=== PATIENT | female | born 1945 | race Caucasian/White ===

== ENCOUNTER → 2018-03-04 | Outpatient (CLI) | payer OTHER ==
[~2018-03-04] MED LIST: ABDOMINAL BINDE1 MI1; ALLO100 PO; ALLO100T PO; CIPR500T4 PO; CLIN1CAP6 PO; COMMODE 3-IN-11 MIS; FLUT50SP EACH NARE; HYDR-3516 PO; HYDR-3580 PO; MACR100C PO; NABU1TAB33 PO; NABU500T PO; OMEP20TA PO; OMEP40CA2 PO; PROBCAP4 PO; SERT-132 PO; SERT25TA83 PO; TYLE500T PO; WALKER WHEELS/F1 MIS; ZOLO25TA PO
--- NOTE | 2018-03-04 11:06 | RADRPT ---
EXAM DATE/TIME: 03/04/2018 10:53 [facility] COMPARISON: No previous studies available for comparison. INDICATIONS : Evaluate for pneumonia,pneumothorax,or communicable disease. MEDICAL HISTORY : None. SURGICAL HISTORY : None. ENCOUNTER: Initial ACUITY: 1 day PAIN SCORE: 0/10 LOCATION: Bilateral upper chest FINDINGS: PA and lateral views of the chest demonstrate the lungs to be symmetrically aerated without evidence of mass, infiltrate or effusion. The cardiomediastinal contours are unremarkable. Osseous structure s are intact. CONCLUSION: No acute disease. Emanuel Wayne MD FACR on March 04, 2018 at 11:03 Board Certified Radiologist. This report was verified electronically.
--- NOTE | 2018-03-05 12:55 | EKG ---
Date Performed: 03/04/2018 Time Performed: 10:03:20 PTAGE: 72 years EKG: NORMAL Sinus rhythm Poor R wave progression Cannot exclude out septal infarct, but most likely lead placement Nonspecifi c ST changes, cannot exclude ischemia ABNORMAL ECG NO PREVIOUS TRACING DOCTOR: Juan Luis Paul Interpretating Date/Time 03/05/2018 12:53:44
== END ==
LOC: CPRE 09:45
PROVIDERS: ATTEND Colon & Rectal Surgery
DX: Z01.811 Encounter for preprocedural respiratory examination (principal); Z01.810 Encounter for preprocedural cardiovascular examination; C18.4 Malignant neoplasm of transverse colon; R94.31 Abnormal electrocardiogram [ECG] [EKG]; Z79.01 Long term (current) use of anticoagulants
CPT/HCPCS: 71046; 93005

== ENCOUNTER 2018-03-08 11:54 | Inpatient (IN) | payer OTHER, MEDICARE ==
[~2018-03-08] VITALS: Ht 172.7 cm; Wt 78.5 kg
[~2018-03-08 11:54] MED LIST changes: -ABDOMINAL BINDE1 MI1; -ALLO100 PO; -CIPR500T4 PO; -CLIN1CAP6 PO; -COMMODE 3-IN-11 MIS; -HYDR-3516 PO; -HYDR-3580 PO; -MACR100C PO; -NABU500T PO; -OMEP20TA PO; -PROBCAP4 PO; -SERT-132 PO; -TYLE500T PO; -WALKER WHEELS/F1 MIS; -ZOLO25TA PO
[2018-03-08] MEDS ORDERED: PHENYLEPH/NS 1000 MCG/10 ML SYR IV ONE (12:00)
[2018-03-08] MEDS ORDERED: GLYCOPYRROLATE 1 MG/5 ML SYRINGE IV PUSH ONE (12:00)
[2018-03-08] MEDS ORDERED: NEOSTIGMINE 5 MG/5 ML SYRINGE IV PUSH ONE (12:00)
[2018-03-08] MEDS ORDERED: ROCURONIUM INJ 50 MG/5 ML SYRINGE IV PUSH ONE (12:00)
[2018-03-08] MEDS ORDERED: DEXAMETHASONE SOD PHOS 4 MG/ML VIAL IV ONE (12:00)
[2018-03-08] MEDS ORDERED: LIDOCAINE HCL 1% PF 5 ML SYRINGE OTHER ONE (12:00)
[2018-03-08] MEDS ORDERED: PROPOFOL 200 MG/20 ML AMP IV ONE (12:00)
[2018-03-08] MEDS ORDERED: ESMOLOL HCL 100 MG/10 ML VIAL IV ONE (12:00)
[2018-03-08] MEDS ORDERED: ONDANSETRON HCL 4 MG/2 ML VIAL IV ONE (12:00)
[2018-03-08] MEDS ORDERED: DEXT 5%-NACL 0.9% 1000 ML INJ 1,000 ML IV SCH (12:45)
[2018-03-08] MEDS ORDERED: LACTATED RINGER'S 1000 ML IV PRN (12:45)
[2018-03-08] MEDS ORDERED: METRONIDAZOLE 500 MG/100 ML ISONTONIC SOLN IV SCH (12:45)
[2018-03-08] MEDS ORDERED: ALVIMOPAN 12 MG CAPSULE - On Call PO SCH (12:45)
[2018-03-08] MEDS ORDERED: INSULIN HUMAN REGULAR 1,000 UNITS/10 ML VIAL SQ PRN (12:45)
[2018-03-08] MEDS ORDERED: SODIUM CHLORID 0.9% 500 ML IV PRN (12:45)
[2018-03-08] MEDS ORDERED: METOPROLOL TARTRATE 25 MG TAB PO PRN (12:45)
--- NOTE | 2018-03-08 12:59 | PD.HP.UP ---
H&P Update Note The Pre-Admit History and Physical Examination regarding the above named patient was reviewed (including, but not limited to, vital signs, heart, lungs, co-morbid conditions), and upon re-examination it is noted that: the patient's condition has not significantly changed since the last examination. Luis Hand MD Mar 08, 2018 12:59
[2018-03-08] MEDS ORDERED: LEVOFLOXACIN 500 MG PREMIX INJ 100 ML IV SCH (13:00)
[2018-03-08] MEDS ORDERED: ceFAZolin 1,000 MG/NS 100 ML IV SCH ×2 (13:15)
[2018-03-08] MEDS ORDERED: GLUCAGON 1 MG/ML VIAL ONE (15:42)
[2018-03-08] MEDS ORDERED: BUPIVACAINE HCL PF 0.5% 30 ML VIAL ONE ×7 (15:42→18:00)
[2018-03-08] MEDS ORDERED: ACETAMINOPHEN 1000 MG/100 ML 100 ML IV ONE (15:59)
[2018-03-08] MEDS ORDERED: HYDROmorphone HCL PF 2 MG/ML VIAL ONE (15:59)
[2018-03-08] MEDS ORDERED: SUGAMMADEX SODIUM 200 MG/2 ML VIAL IV PUSH ONE (15:59)
[2018-03-08] MEDS ORDERED: MIDAZOLAM HCL 2 MG/2 ML VIAL ONE (16:05)
[2018-03-08] MEDS: PCA - TOTAL MG MORPHINE DELIVERED PER SHIFT SCH ×2 (18:00→22:21)
[2018-03-08] MEDS ORDERED: ENALAPRILAT 1.25 MG/ML VIAL IV PUSH PRN (18:00)
[2018-03-08] MEDS ORDERED: POTASSIUM CHLOR 20 MEQ PREMIX 100 ML IV PRN (18:00)
[2018-03-08] MEDS ORDERED: BENZOCAINE 6 MG/MENTHOL 10 MG LOZENGE BUCCAL PRN (18:00)
[2018-03-08] MEDS ORDERED: Post-op Orders (for Pharmacy) XX ONE (18:00)
[2018-03-08] MEDS ORDERED: ACETAMINOPHEN/HYDROcodone 325 MG/5 MG TAB PO PRN (18:00)
[2018-03-08] MEDS ORDERED: NALOXONE HCL 0.4 MG/ML AMP IV PUSH PRN (18:00)
[2018-03-08] MEDS ORDERED: POTASSIUM CHLOR 40 MEQ PREMIX 100 ML IV PRN (18:00)
[2018-03-08] MEDS ORDERED: ACETAMINOPHEN 325 MG TAB PO PRN (18:00)
[2018-03-08] MEDS ORDERED: ONDANSETRON HCL 4 MG/2 ML VIAL IV PUSH PRN (18:00)
[2018-03-08] MEDS ORDERED: BUPIVACAINE HCL PF 0.5% 30 ML VIAL NB SCH (18:00)
[2018-03-08] MEDS ORDERED: ENALAPRILAT 2.5 MG/2 ML VIAL IV PUSH PRN (18:00)
[2018-03-08] MEDS ORDERED: DO NOT ADM ANY ANTICOAGULANT DRUGS PRN (18:04)
[2018-03-08] MEDS ORDERED: FLUTICASONE PROPIONATE 50 MCG/ACT 16 GM NASAL SPRAY EACH NARE PRN (18:15)
[2018-03-08] MEDS ORDERED: *MEPERIDINE 25 MG INJ VIAL PERIprocedural Use ONLY ONE (18:23)
[2018-03-08] MEDS: D5-NS + KCL 20 MEQ INJ 1,000 ML IV SCH ×2 (18:43→23:42)
[2018-03-08] MEDS: MORPHINE SULFATE 30 MG/30 ML PCA IV SCH (19:28)
[2018-03-08] MEDS ORDERED: PILL SPLITTER OTHER PRN (19:45)
[2018-03-08 20:30] VITALS: BP 137/83; PULSE 91; RESP 16; TEMP 98.7; O2SAT 96
[2018-03-08 20:42] VITALS: BP 137/83; PULSE 89; RESP 18; TEMP 98.5; O2SAT 94
[2018-03-08] MEDS: METOCLOPRAMIDE HCL 10 MG/2 ML VIAL IVS SCH (21:00)
[2018-03-08] MEDS: SERTRALINE HCL 50 MG TAB PO SCH (21:00)
[2018-03-08 23:08] VITALS: BP 127/76; PULSE 89; RESP 18; O2SAT 94
[2018-03-08] MEDS: metroNIDAZOLE 500 MG INJ 100 ML IV SCH (23:09)
[2018-03-09] VITALS (9 sets, daily range): BP systolic 106–127; BP diastolic 52–79; PULSE 71–95; RESP 16–17; TEMP 98–100.1; O2SAT 94–99
[2018-03-09] MEDS: PCA - TOTAL MG MORPHINE DELIVERED PER SHIFT SCH ×3 (06:00→22:00)
[2018-03-09 06:46] LABS: AUTOMATED NEUTROPHIL # 8.2 TH/MM3 (1.8-7.7); BASOPHIL % 0.1 % (0.0-2.0); HEMATOCRIT 33.5 % (35.0-46.0); HEMOGLOBIN 11.3 GM/DL (11.6-15.3); LYMPH % 7.8 % (9.0-44.0); LYMPHOCYTE # 0.7 TH/MM3 (1.0-4.8); MEAN CELL VOLUME 91.1 FL (80.0-100.0); MEAN CORPUSCULAR HEMOGLOBIN 30.7 PG (27.0-34.0); MEAN CORPUSCULAR HGB CONC 33.7 % (32.0-36.0); MEAN PLATELET VOLUME 7.8 FL (7.0-11.0); MONO % 6.5 % (0.0-8.0); MONOCYTE # 0.6 TH/MM3 (0-0.9); NEUT % 85.6 % (16.0-70.0); PLATELET COUNT 168 TH/MM3 (150-450); RED BLOOD COUNT 3.67 MIL/MM3 (4.00-5.30); RED CELL DISTRIBUTION WIDTH 14.1 % (11.6-17.2); WHITE BLOOD COUNT 9.6 TH/MM3 (4.0-11.0)
[2018-03-09] MEDS: D5-NS + KCL 20 MEQ INJ 1,000 ML IV SCH ×3 (06:47→21:01)
[2018-03-09] MEDS: KETOROLAC TROMETHAMINE 30 MG/ML (IVP) VIAL IVP PRN (06:48)
[2018-03-09 07:21] LABS: BICARBONATE 25.6 MEQ/L (21.0-32.0); CALCIUM 7.8 MG/DL (8.5-10.1); CREATININE 0.73 MG/DL (0.50-1.00)
[2018-03-09] MEDS ORDERED: ALVIMOPAN 12 MG CAPSULE - Post-op dosing PO SCH (09:00)
[2018-03-09] MEDS: PANTOPRAZOLE SODIUM 40 MG VIAL IVP SCH (09:18)
[2018-03-09] MEDS: METOCLOPRAMIDE HCL 10 MG/2 ML VIAL IVS SCH ×2 (09:19→20:56)
[2018-03-09] MEDS: ALVIMOPAN 12 MG CAPSULE PO SCH ×2 (09:20→20:55)
[2018-03-09] MEDS: PANTOPRAZOLE SOD 40 MG DELAYED RELEASE TAB PO SCH (09:21)
[2018-03-09] MEDS: metroNIDAZOLE 500 MG INJ 100 ML IV SCH ×2 (09:21→15:57)
[2018-03-09] MEDS: ALLOPURINOL 100 MG TAB PO SCH (09:57)
[2018-03-09] MEDS: MORPHINE SULFATE 30 MG/30 ML PCA IV SCH (16:07)
--- NOTE | 2018-03-09 16:08 | HHI.PR ---
Subjective Remarks C/R Surg POD #1 afebrile, VSS UO good Objective - Vital Signs Date Time Temp Pulse Resp B/P (MAP) Pulse Ox O2 Delivery O2 Flow Rate FiO2 03/09/18 14:00 17 03/09/18 11:00 98.0 71 108/67 (81) 99 03/09/18 10:48 Nasal Cannula 2.00 Result Diagram: 03/09/18 0603/09/18 0605 Objective Remarks PE alert Abd - soft, wound dry, min tympany A/P Assessment and Plan Imp: stable post-op OOB decr IVF Tx to floor Luis Hand MD Mar 09, 2018 16:08
[2018-03-09] MEDS: SERTRALINE HCL 50 MG TAB PO SCH (20:55)
[2018-03-10] VITALS (7 sets, daily range): BP systolic 110–140; BP diastolic 61–88; PULSE 79–105; RESP 17–20; TEMP 98–100.2; O2SAT 91–99
[2018-03-10] MEDS: KETOROLAC TROMETHAMINE 30 MG/ML (IVP) VIAL IVP PRN (02:18)
[2018-03-10] MEDS: PCA - TOTAL MG MORPHINE DELIVERED PER SHIFT SCH ×3 (06:00→22:00)
[2018-03-10] MEDS: ALVIMOPAN 12 MG CAPSULE PO SCH ×2 (09:04→21:03)
[2018-03-10] MEDS: ALLOPURINOL 100 MG TAB PO SCH (09:05)
[2018-03-10] MEDS: METOCLOPRAMIDE HCL 10 MG/2 ML VIAL IVS SCH ×2 (09:06→21:06)
[2018-03-10] MEDS: PANTOPRAZOLE SOD 40 MG DELAYED RELEASE TAB PO SCH (09:06)
[2018-03-10] MEDS: PANTOPRAZOLE SODIUM 40 MG VIAL IVP SCH (09:07)
[2018-03-10 09:46] LABS: AUTOMATED NEUTROPHIL # 7.1 TH/MM3 (1.8-7.7); BASOPHIL % 0.4 % (0.0-2.0); EOSINOPHIL # 0.1 TH/MM3 (0-0.4); EOSINOPHIL % 0.7 % (0.0-4.0); HEMATOCRIT 31.4 % (35.0-46.0); HEMOGLOBIN 10.5 GM/DL (11.6-15.3); LYMPH % 16.3 % (9.0-44.0); LYMPHOCYTE # 1.5 TH/MM3 (1.0-4.8); MEAN CORPUSCULAR HEMOGLOBIN 30.7 PG (27.0-34.0); MEAN CORPUSCULAR HGB CONC 33.3 % (32.0-36.0); MEAN PLATELET VOLUME 8.1 FL (7.0-11.0); MONO % 7.7 % (0.0-8.0); MONOCYTE # 0.7 TH/MM3 (0-0.9); NEUT % 74.9 % (16.0-70.0); PLATELET COUNT 149 TH/MM3 (150-450); RED BLOOD COUNT 3.41 MIL/MM3 (4.00-5.30); RED CELL DISTRIBUTION WIDTH 14.3 % (11.6-17.2); WHITE BLOOD COUNT 9.4 TH/MM3 (4.0-11.0)
[2018-03-10 10:04] LABS: BICARBONATE 24.1 MEQ/L (21.0-32.0); CALCIUM 8.2 MG/DL (8.5-10.1); CREATININE 0.7 MG/DL (0.50-1.00)
[2018-03-10] MEDS: MORPHINE SULFATE 30 MG/30 ML PCA IV SCH (18:43)
[2018-03-10] MEDS: D5-NS + KCL 20 MEQ INJ 1,000 ML IV SCH ×2 (18:47→21:15)
[2018-03-10] MEDS: SERTRALINE HCL 50 MG TAB PO SCH (21:03)
[2018-03-11] VITALS (8 sets, daily range): BP systolic 118–136; BP diastolic 57–74; PULSE 84–110; RESP 17–22; TEMP 97.9–98.6; O2SAT 91–95
[2018-03-11] MEDS: PCA - TOTAL MG MORPHINE DELIVERED PER SHIFT SCH ×2 (05:58→14:00)
[2018-03-11] MEDS: PANTOPRAZOLE SOD 40 MG DELAYED RELEASE TAB PO SCH (08:14)
[2018-03-11] MEDS: ALVIMOPAN 12 MG CAPSULE PO SCH ×2 (08:14→21:18)
[2018-03-11] MEDS: ALLOPURINOL 100 MG TAB PO SCH (08:15)
[2018-03-11] MEDS: PANTOPRAZOLE SODIUM 40 MG VIAL IVP SCH (08:15)
[2018-03-11] MEDS: METOCLOPRAMIDE HCL 10 MG/2 ML VIAL IVS SCH (08:16)
[2018-03-11] MEDS: D5-NS + KCL 20 MEQ INJ 1,000 ML IV SCH ×3 (08:18→23:46)
--- NOTE | 2018-03-11 14:50 | RADRPT ---
EXAM DATE/TIME: 03/11/2018 13:55 [facility] COMPARISON: No previous studies available for comparison. INDICATIONS : Right leg swelling. MEDICAL HISTORY : Gastroesophageal reflux disease. Diverticulitis. Carcinoma, colon. TIA. Bronchitis. Born with only left kidney. Osteopeonia. Gout. SURGICAL HISTORY : Exploratory laparotomy. Right colectomy. ENCOUNTER: Initial ACUITY: 1 day PAIN SCORE: 0/10 LOCATION: Right leg. TECHNIQUE: Venous ultrasound of the leg was performed from the inguinal ligament to the proximal calf. Real-ck e, color Doppler and spectral tracing, compression and augmentation techniques were used. FINDINGS: There is normal compressibility of the deep venous system from the inguinal region to the proximal ca lf. No echogenic clot is seen in the lumen of the common femoral, femoral, popliteal, and posterior tibial veins. There is a normal response of the venous system to proximal and distal augmentation an d respiration. CONCLUSION: 1. No DVT in the right leg. 2. Popliteal fossa cyst on the right measures 4.1 x 1.0 x 1.4 cm. Jerome Guan MD on March 11, 2018 at 14:47 Board Certified Radiologist. This report was verified electronically.
[2018-03-11] MEDS ORDERED: METOCLOPRAMIDE HCL 10 MG/2 ML VIAL IVS PRN (17:15)
--- NOTE | 2018-03-11 18:20 | HHI.PR ---
Subjective Remarks C/R Surg POD #3 afebrile, VSS UO good c/o pain in rt knee Objective - Vital Signs Date Time Temp Pulse Resp B/P (MAP) Pulse Ox O2 Delivery O2 Flow Rate FiO2 03/11/18 14:00 17 03/11/18 12:00 98.6 88 118/65 (82) 91 03/11/18 08:15 Nasal Cannula 2.00 Result Diagram: 03/10/18 0729 03/10/18 0729 Objective Remarks PE alert Abd - soft, wound dry, min tympany Knee - slightly swollen, limited flexure, pulses OK A/P Assessment and Plan Imp: stable post-op OOB decr IVF No DVT rt leg - try Luis Mendes MD Mar 11, 2018 18:20
--- NOTE | 2018-03-11 18:52 | MP ---
cc: Luis Hand MD DATE OF OPERATION: 03/08/2018 Corrected Copy: 03/17/18 PREOPERATIVE DIAGNOSIS: Polypoid tumor of the transverse colon. PROCEDURE PERFORMED: Exploratory laparotomy with right hemicolectomy. POSTOPERATIVE DIAGNOSES: Polypoid tumor, possible cancer of the hepatic flexure, Meckel's diverticulum. SURGEON: Luis Hand MD FURNITURE MANAGER: Jatinder Bowles MD DESCRIPTION OF PROCEDURE: The patient was placed in the supine position. After adequate general anesthesia, her abdomen was prepped with Betadine solution and draped in the usual sterile fashion. With Dr. Bella's assistance, the abdomen was opened through a supraumbilical transverse incision, dividing the rectus muscles with electrocautery. Exploration failed to reveal any tattooing of the colon, but palpation did reveal an area of concern consistent with the previously biopsied tumor in the right transverse colon at almost the hepatic flexure. The remainder of the colon was palpated very carefully and felt to be pretty unremarkable. The small bowel was run from the ligament of Treitz down to the ileocecal valve and she was noted to have a very large Meckel's diverticulum. The remainder of the small bowel was pretty unremarkable. The liver and gallbladder were unremarkable. The stomach and duodenum were normal. The uterus and ovaries were appropriately atrophic for her age. First, the right colon was mobilized medially by dividing along the white line of Toldt. The right ureter was identified and carefully preserved. Dissection then proceeded up the right gutter, taking down attachments to the hepatic flexure into the lesser sac and taking the gastrocolic omentum off the transverse colon. The bowel was then divided in the right transverse colon using the DEISY stapling device. The terminal ileum was divided between 2 Krupa clamps. The intervening mesentery taken between Cierra's, obtaining hemostasis with Vicryl ties. Bowel continuity was then restored by firing the DEISY stapler across the antimesenteric ends of the bowel, closing the enterotomy with a TA 60 stapler. Mesenteric defect closed with a running Vicryl suture and a 3-0 Vicryl crotch suture was placed as well. Next, attention was turned to the Meckel's diverticulum and the base of the diverticulum was divided in a transverse fashion using the DEISY stapling device. Hemostasis appeared adequate. The abdomen was irrigated copiously. Adequate hemostasis achieved at all sites. The transverse incision was then closed, anatomically in 2 layers using #1 PDS sutures to reapproximate the respective fascial layers. On-Q catheters were placed into the rectus sheaths on both sides and brought up through subcutaneous tunnels above the transverse incision. The subcutaneous tissue was irrigated and the skin closed with a running subcuticular Vicryl suture. Wound area washed with normal saline and dried. Sterile dressing of Telfa and gauze applied. The patient tolerated the procedure quite well, and was brought to the recovery room in stable condition. MD TOO German/GLENN , 06:34 PM , 06:51 PM
[2018-03-11] MEDS: NAPROXEN 250 MG TAB PO PRN (21:08)
[2018-03-11] MEDS: FUROSEMIDE 20 MG/2 ML VIAL IV PUSH SCH (21:14)
[2018-03-11] MEDS: SERTRALINE HCL 50 MG TAB PO SCH (21:18)
[2018-03-12] VITALS (8 sets, daily range): BP systolic 106–131; BP diastolic 55–80; PULSE 74–93; RESP 16–18; TEMP 97.4–98.3; O2SAT 93–95
[2018-03-12] MEDS: PANTOPRAZOLE SOD 40 MG DELAYED RELEASE TAB PO SCH (08:28)
[2018-03-12] MEDS: PANTOPRAZOLE SODIUM 40 MG VIAL IVP SCH (08:28)
[2018-03-12] MEDS: ALLOPURINOL 100 MG TAB PO SCH (08:29)
[2018-03-12] MEDS: FUROSEMIDE 20 MG/2 ML VIAL IV PUSH SCH ×2 (08:30→20:34)
[2018-03-12] MEDS: ALVIMOPAN 12 MG CAPSULE PO SCH ×2 (08:34→20:34)
[2018-03-12] MEDS: NAPROXEN 250 MG TAB PO PRN ×2 (08:52→15:55)
--- NOTE | 2018-03-12 11:46 | HHI.PR ---
Subjective Remarks POD#4 s/p ascending colectomy comfortable, knee improved but still sore Objective Vital Signs Date Time Temp Pulse Resp B/P (MAP) Pulse Ox O2 Delivery O2 Flow Rate FiO2 03/12/18 08:35 Nasal Cannula 3.50 03/12/18 08:00 97.4 80 16 115/70 (85) 95 03/12/18 08:00 79 03/12/18 05:19 97.7 74 18 124/69 (87) 94 03/12/18 00:32 98.3 90 18 124/78 (93) 94 03/11/18 23:26 Nasal Cannula 3.00 03/11/18 21:11 98.6 110 18 119/57 (77) 94 03/11/18 14:00 17 03/11/18 12:00 98.6 88 22 118/65 (82) 91 03/11/18 11:47 87 I/O 03/11/18 03/11/18 03/11/18 03/12/18 03/12/18 03/12/18 07:00 15:00 23:00 07:00 15:00 23:00 Intake Total 380 ml 985 ml Output Total 1850 ml 500 ml Balance -1470 ml 485 ml Intake Oral 380 ml IV Total 985 ml Output Urine Total 1850 ml 500 ml # Voids 2 1 Result Diagram: 03/10/18 0729 03/10/18 0729 Objective Remarks Abdomen soft, nondistended, tender wound clean R knee with mild swelling, full ROM Assessment and Plan Assessment and Plan Hopefully home tomorrow with outpatient eval of knee If knee not improved by tomorrow, Ortho consult vs IM consult (gout) Daisy Wren MD Mar 12, 2018 11:46
[2018-03-12] MEDS ORDERED: POLYETHYLENE GLYCOL 17 GM PKG PO ONE (12:00)
[2018-03-12] MEDS: D5-NS + KCL 20 MEQ INJ 1,000 ML IV SCH (13:11)
[2018-03-12] MEDS: ACETAMINOPHEN/HYDROcodone 325 MG/5 MG TAB PO PRN ×2 (13:39→20:35)
[2018-03-12] MEDS: SERTRALINE HCL 50 MG TAB PO SCH (20:34)
[2018-03-13] VITALS: BP 118/63; PULSE 81; RESP 18; TEMP 97.7; O2SAT 91
[2018-03-13] MEDS: D5-NS + KCL 20 MEQ INJ 1,000 ML IV SCH ×2 (01:41→14:11)
[2018-03-13 04:00] VITALS: BP 115/75; PULSE 81; RESP 18; TEMP 98.2; O2SAT 91
[2018-03-13 07:41] VITALS: BP 127/60; PULSE 79; RESP 18; TEMP 98.3; O2SAT 92
[2018-03-13] MEDS: PANTOPRAZOLE SOD 40 MG DELAYED RELEASE TAB PO SCH (08:24)
[2018-03-13] MEDS: ALLOPURINOL 100 MG TAB PO SCH (08:24)
[2018-03-13] MEDS: ALVIMOPAN 12 MG CAPSULE PO SCH (08:24)
[2018-03-13] MEDS: PANTOPRAZOLE SODIUM 40 MG VIAL IVP SCH (08:25)
[2018-03-13] MEDS: FUROSEMIDE 20 MG/2 ML VIAL IV PUSH SCH (08:25)
[2018-03-13] MEDS: NAPROXEN 250 MG TAB PO PRN (09:23)
[2018-03-13 11:24] VITALS: PULSE 97
[2018-03-13 11:58] VITALS: BP 119/69; PULSE 56; RESP 18; TEMP 97.9; O2SAT 94
--- NOTE | 2018-03-13 12:05 | HHI.PR ---
Subjective Remarks POD#5 s/p ascending colectomy comfortable, knee better, rash on back Objective Vital Signs Date Time Temp Pulse Resp B/P (MAP) Pulse Ox O2 Delivery O2 Flow Rate FiO2 03/13/18 11:58 97.9 56 18 119/69 (86) 94 03/13/18 11:24 97 03/13/18 07:41 98.3 79 18 127/60 (82) 92 03/13/18 04:00 98.2 81 18 115/75 (88) 91 03/13/18 00:00 97.7 81 18 118/63 (81) 91 03/12/18 23:00 81 03/12/18 20:00 98.2 83 18 106/63 (77) 93 03/12/18 16:16 85 03/12/18 16:00 97.9 87 16 116/55 (75) 95 03/12/18 16:00 79 I/O 03/12/18 03/12/18 03/12/18 03/13/18 03/13/18 03/13/18 07:00 15:00 23:00 07:00 15:00 23:00 # Voids 1 3 # Bowel Movements 1 1 Result Diagram: 03/10/18 0729 03/10/18 0729 Objective Remarks Abdomen soft, nondistended, tender wound clean R knee with no further swelling Assessment and Plan Assessment and Plan Home today Followup with Dr. Hand 2 weeks Followup with PCP 2 weeks Daisy Wren MD Mar 13, 2018 12:05
[2018-03-13] MEDS ORDERED: WALKER WHEELS/F1 MIS (12:13)
[2018-03-13] MEDS ORDERED: COMMODE 3-IN-11 MIS (12:13)
[2018-03-13] MEDS ORDERED: HYDR-3516 PO (12:13)
[2018-03-13] MEDS ORDERED: ABDOMINAL BINDE1 MI1 (12:13)
--- NOTE | 2018-03-17 08:05 | MD ---
cc: Luis Hand MD,Luis Swift,Rhys Jimenez MD DATE OF DISCHARGE: 03/13/2018 ADMITTING DIAGNOSIS: Polypoid tumor of the transverse colon. PROCEDURE: 03/08/2018, exploratory laparotomy with ascending colectomy, excision of Meckel's diverticulum. 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 Tubular adenomas. Meckel's diverticulum. HISTORY OF PRESENT ILLNESS: Ms. Tyler is a 73-year-old female who underwent outpatient colonoscopy and found to have a sessile polyp of the transverse colon. Initial biopsies of the polyp showed some dysplasia, but no invasive cancer; however, the tumor did appear to be suspicious for invasive cancer. Attempts at colonoscopic removal were felt to be unsuccessful and she was referred for definitive surgical resection. She does move her bowels fairly well without any laxatives or enemas. Denies any real abdominal pain, nausea, vomiting or rectal bleeding. Denies any melena. Her appetite has been good and her weight has been stable. Please see the admitting history and physical for a more complete past medical and surgical history. PERTINENT PHYSICAL: GENERAL: A very pleasant older female in no acute distress. ABDOMEN: Soft and benign. Very little distention. No rebound or guarding or any masses noted. ANAL INSPECTION: Anal inspection revealed benign canal. Digital exam revealed good to fair tone with no masses or mucosal irregularity. No blood on the finger. HOSPITAL COURSE: After admission, the patient was taken to the operating room on 03/08/2018 at which point she underwent an exploratory laparotomy with ascending colectomy. She was found to have a polypoid tumor of the hepatic flexure, as well as a rather large Meckel's diverticulum. She tolerated both procedures quite well. Initially, she was stabilized in the intensive care unit. Her bowel function returned quite promptly and her diet was advanced accordingly. She was able to ambulate with some assistance. Her IV fluids were tapered. She was switched off IV pain medication and tolerated oral pain medication. She did develop some tenderness of her right knee felt to be possibly related to her gout. She was treated with anti-inflammatories and heat to the knee and the knee did seem to respond to medical therapy. She was ambulating better, eating well and considered ready for discharge home on 03/13/2018. Final pathology report did reveal an invasive well differentiated adenocarcinoma. 16 lymph nodes were negative for cancer. Final stage was [id number]. Meckel's diverticulum was pretty unremarkable. DISCHARGE INSTRUCTIONS: The patient was discharged eating a regular diet. She was encouraged to ambulate daily avoiding any heavy lifting or straining. All preop medications were to be resumed. The patient will be seen in the office in 1 weeks time for routine followup. Any problems prior to her scheduled office visit, she was encouraged to call for more urgent attention. Luis Hand MD AHR/DL , 07:39 AM , 08:04 AM
--- NOTE | 2018-03-25 17:04 | PQ ---
Physician Query Response Document PATIENT: ADAMA RUIZ : 1945 ADMIT DATE: 03/08/2018 11:54 AM DISCH DATE: 03/13/2018 3:40 PM RESPONDING PROVIDER #: Intizaitter QUERY TEXT: Conflicting Documentation Clarification A single mention or documentation of multiple diagnoses for the same clinical presentation appears in the record. Please clarify the diagnosis/diagnoses: Are you in agreement with the Pathology report diagnosis/location of adenocarcinoma of right (ascending) colon? Please also document if the condition is: -- Confirmed and current -- Confirmed, treated and resolved -- Ruled out -- Other, please specify If you have any additional questions/comments and/or concerns, please do not hesitate to reach out to the CDI/Coding Hotline, Ext. [phone]. The patient's Clinical Indicators include: Operative report documents - POSTOPERATIVE DIAGNOSES: Polypoid tumor, possible cancer of the hepatic flexure. DESCRIPTION OF PROCEDURE: palpation did reveal an area of concern consistent with the previously bi opsied tumor in the right transverse colon at almost the hepatic flexure. The bowel was then divided in the right transverse colon using the DEISY stapling device. The terminal ileum was divided between 2 Krupa clamps. PATHOLOGY REPORT - Does not document removal of transverse colon or hepatic flexure. Documents spec imen removed as: FINAL DIAGNOSIS: ASCENDING COLON WITH CECUM AND TERMINAL ILEUM, RIGHT HEMICOLECTOMY: ASCENDING COLON AND CECUM: - INVASIVE WELL DIFFERENTIATED ADENOCARCINOMA (SEE PATHOLOGY SUMMARY). - TUBULAR ADENOMAS (TWO). - CALCIFIED APPENDIX EPIPLOICA. - APPENDIX WITH PARTIAL DISTAL FIBROUS REPLACEMENT. TUMOR SITE: RIGHT (ASCENDING) COLON. TYPE OF POLYP IN WHICH INVASIVE CARCINOMA AROSE: TUBULOVILLOUS ADENOMA Query created by: Roz Conteh on 03/16/2018 11:12 AM RESPONSE TEXT: Provider disagreed with this CDI query. Electronically signed by: Luis Hand MD 03/25/2018 5:01 PM
== END 2018-03-13 15:40 | disposition home or self-care (01) | DRG 330 ==
LOC: HSDI 11:54 → HCIS 20:24 → N05B 03-09 18:24
PROVIDERS: ADMIT Colon & Rectal Surgery; ATTEND Colon & Rectal Surgery
PROC: 0DTK0ZZ Resection of Ascending Colon, Open Approach (ICD-10-PCS; 2018-03-08)
PROC: 0DBB0ZZ Excision of Ileum, Open Approach (ICD-10-PCS; 2018-03-08)
PROC: 0DTH0ZZ Resection of Cecum, Open Approach (ICD-10-PCS; principal; 2018-03-08 16:10)
DX: C18.2 Malignant neoplasm of ascending colon (principal); C18.0 Malignant neoplasm of cecum; Q60.0 Renal agenesis, unilateral; E78.5 Hyperlipidemia, unspecified; K21.9 Gastro-esophageal reflux disease without esophagitis; F32.9 Major depressive disorder, single episode, unspecified; Q43.0 Meckel's diverticulum (displaced) (hypertrophic); Z86.73 Personal history of transient ischemic attack (TIA), and cerebral infarction without residual deficits; M10.9 Gout, unspecified; E66.9 Obesity, unspecified; Z68.26 Body mass index [BMI] 26.0-26.9, adult; M25.561 Pain in right knee; R21 Rash and other nonspecific skin eruption
CPT/HCPCS: 80048; 85025; 86850; 86900; 86901; 88304; 88307; 88309; 93971; 94150; C9113; J0131; J0690; J1100; J1170; J1610; J1885; J1940; J2175; J2250; J2270; J2370; J2405; J2710; J2765; J3010; J3480